=== PATIENT | female | born 1995 | race African-American/Black ===

== ENCOUNTER 2019-01-03 19:04 | Emergency (ER) | payer OTHER, SELFPAY ==
[~2019-01-03 19:04] MED LIST: ISOVUE-370 76%-LOCM 1 ML ONE
[2019-01-03 19:48] LABS: Bilirubin Negative (Negative); Blood, Urine Negative (Negative); Clarity CLOUDY (Clear); Glucose, Urine (Dipstick) Negative (Negative); Leukocyte Trace (Negative); Nitrite Negative (Negative); Protein, Urine (Dipstick) Negative (Neg-Trace); pH, Urine 5.5 (5.0-9.0)
[2019-01-03 19:50] LABS: Bacteria/HPF 2+ HPF (None Seen)
[2019-01-03 19:52] LABS: Pathc Cast-AUWi Flag 3.53 (0-2.49)
[2019-01-03 20:03] LABS: #Basophils 0.1 thou/uL (0.0-0.2); #Eosinphils 0.1 thou/uL (0.0-0.7); #Monocytes 0.9 thou/uL (0.11-0.59); #Neutrophils 8.1 thou/uL (1.40-6.50); %Basophils 0.7 % (0.0-1.0); %Eosinophils 0.9 % (0.0-10.0); %Lymphocytes 18.2 % (21.0-51.0); %Monocytes 7.6 % (0.0-10.0); %Neutrophils 72.6 % (42.0-75.0); Hemoglobin 11.6 g/dL (12.0-16.0); Mean Corpuscular HGB CONC 33.8 g/dL (32.0-36.0); Mean Corpuscular Hemoglobin 28.6 pg (27.0-31.0); Mean Corpuscular Volume 84.5 fL (78.0-98.0); Mean Platelet Volume 8.5 fL (7.4-10.4); Platelet Count 267 thou/uL (130-400); RBC Distribution Width 12.7 % (11.5-14.5); Red Blood Cell (RBC) Count 4.07 mill/uL (4.20-5.40); White Blood Cell (WBC) Count 11.2 thou/uL (4.8-10.8)
[2019-01-03 20:07] LABS: RBC/HPF 0-3 HPF (0-3)
[2019-01-03 20:08] LABS: Hyaline Casts/LPF 0-3 HYALINE CAST LPF (0-3 Hyaline); Other Casts/LPF None Seen LPF (0-3 Hyaline)
[2019-01-03 20:19] LABS: BHCG - Serum Negative (NEGATIVE); Pregs Control Background? CLEAR/WHITE (CLR/WHITE); Pregs Control Bar Appear? YES (CONTROL BAR)
[2019-01-03 20:26] LABS: ALT (SGPT) 12 U/L (8-55); AST (SGOT) 17 U/L (5-34); Alkaline Phosphatase 109 U/L (40-150); Anion Gap 12 mmol/L (10-20); BUN (Urea Nitrogen) 6 mg/dL (7.0-18.7); Bilirubin, Total 0.2 mg/dL (0.2-1.2); Calc. Creatinine Clearance 0 mL/min (70-130); Calcium 9.2 mg/dL (7.8-10.44); Carbon Dioxide 25 mmol/L (22-29); Chloride 103 mmol/L (98-107); Estimated GFR-MDRD 84; Globulin 3.4 g/dL (2.4-3.5); Glucose 95 mg/dL (70-105); Lipase 21 U/L (8-78); Potassium 3.8 mmol/L (3.5-5.1); Protein, Total 7.4 g/dL (6.0-8.3); Sodium 136 mmol/L (136-145)
--- NOTE | 2019-01-03 20:54 | CT ---
CT Abdomen Pelvis W Con History: [Abdominal pain. Right lower quadrant pain.] Comparison: None. Findings: The lung bases are clear. No pericardial effusion. The liver, gallbladder, spleen, pancreas, adrenal glands are normal. Normal proximal small bowel dila tation. The aortic contour is not aneurysmal. There is abnormal soft tissue edema and inflammation along the right lower quadrant skin subcutaneous fat. Fascia overlying the right rectus abdominis muscles mildly thickened. The right rectus abdominis muscle is not involved. Reactive superficial inguinal lymph nodes are present. Osseous stru ctures are normal. No hydronephrosis. No dilated loops of large or small bowel. No free intraperitoneal gas or fluid. The appendix is visualized and is normal. Impression: Right lower quadrant cellulitis and superficial panniculitis as well as mild thickening o f the superficial fascia. No drainable collection is appreciated. Underlying rectus abdominis and oblique musculature is not involved. Reactive superficial inguinal lymph nodes.
[2019-01-03] MEDS ORDERED: Cephalexin 250 MG CAP ONE (21:30)
[2019-01-03] MEDS ORDERED: Sulfameth/Trimethoprim DS 800-160mg TAB ONE (21:30)
== END 2019-01-03 21:41 | disposition home or self-care (01) ==
LOC: ERS 19:04
DX: R10.31 Right lower quadrant pain (principal); D64.9 Anemia, unspecified; Z79.899 Other long term (current) drug therapy
CPT/HCPCS: 36415; 74177; 80053; 81003; 81015; 83690; 84703; 85025; Q9966

== ENCOUNTER 2019-03-17 08:32 | Outpatient (CLI) | payer OTHER ==
--- NOTE | 2019-03-17 09:51 | RAD ---
RIGHT KNEE 3 VIEWS: Date: 03/17/19 INDICATION: History of positive Kevin test. 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 No joint capsular distention or acute fracture is demonstrated. POS: TPC
--- NOTE | 2019-03-17 11:33 | MRI ---
MRI LEFT KNEE WITHOUT IV CONTRAST: HISTORY: R29.898, positive Kevin test, left knee pain, right knee lateral tenderness, and right knee effusio n. FINDINGS: Multiplanar, multisequence MRI examination of the right knee is performed. Minimal superficial subcu taneous fat stranding noted in the superficial infrapatellar region, as well as overlying the anterio r tibial tuberosity. The inferior tip of the patella has a somewhat pointed appearance, with some mi nimal increased signal, evidence for mild marrow signal and some slight adjacent fat stranding in the adjacent Hoffa's fat, possibly mild contusion or sprain of the patellar/patellar tendon insertion re gion. In addition, there are noted to be some secondary ossification centers at the anterior tibial tuberosity, with very minimal marrow signal, a finding that can be seen in association with Marlys-Sc hlatter's disease. The patellar tendon is intact. There is a borderline low patella. No evidence for joint effusion. Focal full-thickness, circumscribed chondral defect involving the la teral femoral condyle, measuring approximately 0.6 x 0.8 cm in size, with only minute subchondral oss eous changes. There is minimal irregularity of the medial meniscus, at the capsular-meniscal junctio n region of the posterior horn, near the posterior root, and also at the posterior horn/posterior bod y. I feel this probably represents a capsular-meniscal tear. Anterior and posterior cruciate ligame nts are intact. Collateral ligament complex is unremarkable. No significant joint effusion. IMPRESSION: 1. Evidence for some irregularity of the medial meniscus, posteriorly, near the posterior root, as w ell as at the posterior horn-posterior body junction, primarily the capsular-meniscal junction region , concerning for a capsular-meniscal junction type tear. 2. Focal full-thickness cartilage defect involving the central lateral femoral condyle, with only mi nute adjacent marrow edema. 3. Incomplete ossification and probable secondary ossification center at the anterior tibial tubercl e, with minimal marrow edema, a finding that can be seen in association with [place]-Schlatter's disea se, with minimal anterior subcutaneous fat stranding. 4. Somewhat elongated inferior tip of patella with some associated abnormal marrow signal and some a djacent edema within Hoffa's fat, evidence for associated injury, possibly mild contusion versus an a vulsion-type injury of the patellar tendon/inferior patellar insertion. 5. Other findings as above. POS: OFF
== END 2019-03-17 08:33 | disposition home or self-care (01) ==
LOC: TBSIIMAG 08:32
PROVIDERS: ATTEND Pediatrics Sports Medicine
DX: M25.461 Effusion, right knee (principal); M25.561 Pain in right knee; S83.206A Unspecified tear of unspecified meniscus, current injury, right knee, initial encounter; R29.898 Other symptoms and signs involving the musculoskeletal system; R60.0 Localized edema